=== PATIENT | female | born 1955 | race Caucasian/White ===

== ENCOUNTER → 2016-10-20 | Outpatient (CLI) | payer OTHER ==
[~2016-10-20] MED LIST: AMBIEN PO; ATORVASTATIN CA10 MG PO; IBUPROFEN800 MG PO; NEXIUM PO; NORCO 5/325 TAB1 TAB PO; OMNICEF300 MG PO; PANTOPRAZOLE SO40 MG PO; PAROXETINE HCL20 M1 PO; PAXIL PO; PEPCID AC20 MG PO; TYLENOL PM; [UNRECOGNIZED DRUG - REMARK]
--- NOTE | ~2016-10-20 | MY29 ---
[facility] A Service of [facility] & [facility] RADIOLOGY TEXT RESULTS PATIENT: DIONNE WATERS LOCATION: [facility] : 55 UNIT #: [id number] AGE: [address]: Syed Lozano MD SEX: F ORDER DR: [id number] [facility] [address] [place], [place] [address] [id number] O MR#: [id number] Acc #: [id number] NAME: DIONNE WATERS : 1955 SEX: F STUDY DATE/TIME: 10/20/2016 9:25 UNIT: [facility] ROOM: STUDY DESCRIPTION: MY JUAN SCREENING W/ CAD BILAT Attending Physician: Syed Lozano M.D. Referring Physician: Syed Lozano M.D. Ordering Physician: Syed Lozano M.D. Primary Care Physician: Syed Lozano M.D. MEDICAL IMAGING REPORT This report is preliminary unless electronic signature is present EXAM Bilateral screening mammogram with CAD HISTORY Routine screening. No current complaints no family history of breast cancer. COMPARISON 09/16/2010. FINDINGS MLO and CC digital views of each breast were obtained and reviewed with an FDA-approved CAD device. There is a biopsy clip in the right breast. The breasts have scattered fibroglandular densities. There are multiple nodules in the left breast. There is a pair of 7 to 8 m nodules that are stable. There is a new 9 mm nodule in the lateral left breast and there is also a new 5 mm nodule in the posterior central breast. One of these nodules is probably about 3 o'clock in the breast. The right breast is stable. IMPRESSION 1. No change in the appearance of the right breast 2. There are least 4 nodules visible in the left breast two of them are present in 2010. Two are new with 1 new nodule about 3 o'clock in the left breast measuring 9 mm in size and 1 more centrally located on the CC view measuring 5 mm in size. Recommendation imaging including spot compression views over the nodules in the CC and MLO projection followed by ultrasound. They are likely cysts. Patients over the age of 40 are entered into a reminder system with target due date for the next mammogram. A result letter will also be sent to the patient. [facility] A Service of [facility] RADIOLOGY TEXT RESULTS PATIENT: DIONNE WATERS LOCATION: [facility] : 55 UNIT #: [id number] AGE: [address]: Syed Lozano MD SEX: F ORDER DR: BIRADS: 0. Incomplete; Need additional imaging evaluation and/or prior mammograms for comparison. Dictated by... Betito Shankar M.D. THIS IS AN ELECTRONICALLY VERIFIED REPORT Betito Shankar M.D. at 10/29/2016 11:23 AM KYRA/josefina TD: 10/27/2016 13:47 JOB #: [id number] MEDICAL IMAGING REPORT Page 1 of 1 COPY
== END | disposition home or self-care (01) ==
LOC: CWCC 08:59
DX: Z12.31 Encounter for screening mammogram for malignant neoplasm of breast (principal); N63 Unspecified lump in breast
CPT/HCPCS: G0202

== ENCOUNTER → 2016-11-13 | Outpatient (CLI) | payer OTHER ==
--- NOTE | ~2016-11-13 | MY26 ---
[facility] A Service of [facility] & [facility] RADIOLOGY TEXT RESULTS PATIENT: DIONNE WATERS LOCATION: [facility] : 55 UNIT #: [id number] AGE: [address]: Syed Lozano MD SEX: F ORDER DR: [id number] [facility] [address] [place], [place] [address] [id number] O MR#: [id number] Acc #: [id number] NAME: DIONNE WATERS. : 1955 SEX: F STUDY DATE/TIME: 11/13/2016 14:55 UNIT: [facility] ROOM: STUDY DESCRIPTION: [facility] DIAGNOSTIC W/ CAD BILAT Attending Physician: Syed Lozano M.D. Referring Physician: Syed Lozano M.D. Ordering Physician: Syed Lozano M.D. Primary Care Physician: Syed Lozano M.D. MEDICAL IMAGING REPORT This report is preliminary unless electronic signature is present EXAMINATION Left breast digital diagnostic mammogram with CAD. DATE 11/13/2016 HISTORY Nodular densities seen within the upper outer left breast on screening mammogram for which additional diagnostic imaging was recommended. COMPARISON Bilateral screening mammogram, 10/20/2016. Bilateral screening mammogram 09/16/2010. Left breast diagnostic ultrasound 01/14/2010. FINDINGS High-resolution spot magnification views were obtained of the left breast in the CC and MLO planes. At least, 3 nodular densities persist, each measuring less than a centimeter in size. No architectural distortion or microcalcification is seen. Targeted diagnostic ultrasound was performed in the lateral hemisphere left breast. There is ductal ectasia in the periareolar region near the 1 o'clock axis. No intraductal lesion is identified. Near the 3 o'clock axis, left breast 3 cm from the nipple, a complex cystic lesion is seen measuring nearly 7 mm, wider than tall, without internal vascularity, without acoustic shadowing. A simple cyst measuring 6 mm is seen in the 2 o'clock position right breast 4 cm from the nipple. A simple cyst in the 2 o'clock axis right breast 4 cm from the dome measures 3 mm. No suspicious solid nodules identified. Incidental note is made of a benign round calcification in the same vicinity. IMPRESSION 1. BIRADS 3F6. Probable benign finding. A complex cystic lesion is STS. [facility] A Service of [facility] & [facility] RADIOLOGY TEXT RESULTS PATIENT: DIONNE WATERS LOCATION: [facility] : 55 UNIT #: [id number] AGE: [address]: Syed Lozano MD SEX: F ORDER DR: seen within the 3 o'clock left breast measuring 7 mm. I highly suspect it represents a benign cyst which has internal hemorrhagic or proteinaceous products. Additional 6-month followup ultrasound recommended to document stability. Other nodules within the left breast on mammogram, thought to correspond to benign simple cysts. 2. The findings and recommendations were discussed with the patient today in the radiology department. BIRADS 3F6. Probably a benign finding. Six month follow-up left breast ultrasound recommended. Patients over the age of 40 are entered into a reminder system with target due date for the next mammogram. A result letter will also be sent to the patient. BIRADS: 3 Probably benign finding; short interval followup suggested. Dictated by... Jenn Phipps M.D. THIS IS AN ELECTRONICALLY VERIFIED REPORT Jenn Phipps M.D. at 11/16/2016 8:50 AM SYD/clarissa TD: 11/14/2016 00:27 JOB #: [id number] MEDICAL IMAGING REPORT Page 1 of 1 COPY
--- NOTE | ~2016-11-13 | US24 ---
[facility] A Service of [facility] RADIOLOGY TEXT RESULTS PATIENT: DIONNE WATERS LOCATION: [facility] : 55 UNIT #: [id number] AGE: [address]: Syed Lozano MD SEX: F ORDER DR: [id number] [facility] [address] [place], [place] [address] [id number] O MR#: [id number] Acc #: [id number] NAME: DIONNE WATERS. : 1955 SEX: F STUDY DATE/TIME: 11/13/2016 15:12 UNIT: [facility] ROOM: STUDY DESCRIPTION: US Breast Unilateral Attending Physician: Syed Lozano M.D. Referring Physician: Syed Lozano M.D. Ordering Physician: Syed Lozano M.D. Primary Care Physician: Syed Lozano M.D. MEDICAL IMAGING REPORT This report is preliminary unless electronic signature is present EXAMINATION Left breast targeted diagnostic ultrasound. DATE 11/13/2016 HISTORY Nodular densities on diagnostic mammogram and screening mammogram for which additional sonographic imaging was necessary. COMPARISON Bilateral screening mammogram 10/20/2016, left breast diagnostic mammogram 11/13/2010. FINDINGS Targeted sonographic imaging was performed of the upper outer quadrant left breast and periareolar left breast. Please refer to the diagnostic mammogram report from the same date for full description mammographic and sonographic findings and recommendations. IMPRESSION Left breast BIRADS category 3F6. Probably benign finding. Please refer to the diagnostic mammogram report from the same day for full description of mammographic and sonographic findings and recommendations. Patients over the age of 40 are entered into a reminder system with target due date for the next mammogram. A result letter will also be sent to the patient. BIRADS: 3. Probably benign finding; short interval followup suggested. [facility] A Service [facility] RADIOLOGY TEXT RESULTS PATIENT: DIONNE WATERS LOCATION: [facility] : 55 UNIT #: [id number] AGE: [address]: Syed Lozano MD SEX: F ORDER DR: Dictated by... Jenn Phipps M.D. THIS IS AN ELECTRONICALLY VERIFIED REPORT Jenn Phipps M.D. at 11/16/2016 8:50 AM SYD/josefina TD: 11/14/2016 00:14 JOB #: [id number] MEDICAL IMAGING REPORT Page 1 of 1 COPY
== END | disposition home or self-care (01) ==
LOC: CMAM 14:34
DX: R92.8 Other abnormal and inconclusive findings on diagnostic imaging of breast (principal); N60.02 Solitary cyst of left breast; N63 Unspecified lump in breast
CPT/HCPCS: 76641; G0204